=== PATIENT | male | born 1970 | race Caucasian/White ===

== ENCOUNTER → 2019-06-18 09:30 | Outpatient (CLI) | payer OTHER, SELFPAY ==
[2019-06-18 11:06] LABS: Alanine Aminotransferase 23 IU/L (<50); Albumin 4.6 g/dL (3.5-5.0); Albumin Globulin Ratio 1.5 (1.0-2.8); Alkaline Phosphatase 60 U/L (38-126); Aspartate Aminotransferase 23 IU/L (17-59); BUN Creatinine Ratio 22.2 (6-22); Bilirubin Total 0.4 mg/dL (0.2-1.3); Blood Urea Nitrogen 20 mg/dL (9-20); Calcium 9.8 mg/dL (8.4-10.2); Carbon Dioxide 24 mmol/L (22-32); Chloride 102 mmol/L (98-107); Estimated Glomerular Filt Rate > 60.0 mL/min (>60); Globulin 3.1 g/dL (1.7-4.1); Glucose 105 mg/dL (70-100); HEMOLYSIS < 15 (0-50); Potassium 4.5 mmol/L (3.4-5.1); Sodium 136 mmol/L (137-145); Total Protein 7.7 g/dL (6.3-8.2)
[2019-06-18 11:07] LABS: Digoxin < 0.4 ng/mL (0.8-2.0)
== END ==
LOC: LAB 09:31
PROVIDERS: PCP Nurse Practitioner Family; Visit Provider Internal Medicine Cardiovascular Disease
DX: I50.22 Chronic systolic (congestive) heart failure (principal)
CPT/HCPCS: 36415; 80053; 80162

== ENCOUNTER → 2019-07-09 07:49 | Outpatient (CLI) | payer OTHER, SELFPAY ==
--- NOTE | 2019-07-09 | DI.ECHO.S_ITS ---
[facility]---------+ [facility] +---------+ : : [address] : [place] [address] : : : : [id number] : : : : Phone: [phone] Echocardiogram Report + + :Name: DREW STERN Study Date: 07/09/2019 Height: 69 in : :[facility] Weight: 250 lb : : Gender: Male BSA: 2.3 m2 : :: 1970 Age: 48 yrs BP: 134/62 mmHg: :Reason For Study: SYSTOLIC HEART FAILURE : :Ordering Physician: Barbara : :Dyana Nolen Performed By: Farnaz Álvarez : :Referring: BARBARA NOLEN : + + Interpretation Summary The left ventricle is normal in size. This is decreased compared to the previous study. Left ventricular ejection fraction is estimated to be 55 +/- 5%. Left ventricular systolic function has significantly improved compared to the previous exam. The right ventricle is normal in size and function. Right ventricular systolic function has increased since previous exam. No significant valvular pathology seen. The IVC is of normal diameter and collapses greater than 50% with a sniff. This suggests a low right atrial pressure of 3 mm Hg. Right atrial pressure has decreased from the previous study. The patient was in atrial flutter with heart rates between 89-104 bpm during the exam. Procedure: A two-dimensional transthoracic echocardiogram with color flow and Doppler was performed. The study quality was technically adequate. Comparison is made with the echocardiogram of 06/14/2017. The patient was in atrial flutter with heart rates between 89-104 bpm during the exam. Left Ventricle: Left ventricular wall thickness is mildly increased. The left ventricle is normal in size. This is decreased compared to the previous study. There is no thrombus. Left ventricular ejection fraction is estimated to be 55 +/- 5%. Left ventricular systolic function has significantly improved compared to the previous exam. There are no focal wall motion abnormalities. E/E' med: 8.9. Right Ventricle: The right ventricle is normal in size and function. Right ventricular systolic function has increased since previous exam. Atria: Both atria are normal in size. Both atria have significantly decreased in size since the prior echo exam. There is no Doppler evidence for an interatrial shunt. Mitral Valve: The mitral valve leaflets are slightly calcified. There is trace mitral regurgitation. Compared to the prior echo study, there has been a decrease in the severity of mitral regurgitation. Aortic Valve: The aortic valve is trileaflet. The aortic valve opens well. No aortic regurgitation is present. Tricuspid Valve: The tricuspid valve is normal in structure and function. Pulmonary artery pressures cannot be estimated because of the lack of a measurable TR jet velocity. There is a trace or physiologic amount of tricuspid regurgitation. Compared to the prior echo exam, there has been a decrease in TR severity. Pulmonic Valve: The pulmonic valve is not well visualized. Great Vessels: The aortic root is normal size. The ascending aorta is at the upper limits of normal in size. The IVC is of normal diameter and collapses greater than 50% with a sniff. This suggests a low right atrial pressure of 3 mm Hg. Pericardium/ Pleura There is no pericardial effusion. MMode/2D Measurements & Calculations LVIDd: 5.2 cm LVOT diam: 2.5 cm LVIDs: 4.2 cm Ao root diam: 3.6 cm FS: 18.6 % asc Aorta Diam: 3.4 cm EPSS: 0.90 cm Ao Arch Diam (Prox Trans): 3.0 cm IVSd: 1.2 cm LVPWd: 1.1 cm LV wylie. diameter/BSA (cm/m^2): 2.3 LV sys. diameter/BSA (cm/m^2): 1.9 LA A2 area: 19.3 cm2 RA long axis: 5.1 cm LA A4 area: 18.2 cm2 RA area: 19.3 cm2 LA length (vol): 5.2 cm RA vol: 61.5 ml LA vol: 57.1 ml RA : 27.1 ml/m2 LA vol index: 25.1 ml/m2 IVC diam: 0.87 cm RVD1 (basal): 3.0 cm RVD2 (mid): 3.0 cm TAPSE: 2.9 cm Doppler Measurements & Calculations Ao V2 max: 116.1 cm/sec LVOT Max Gareth: 84.6 cm/sec Ao V2 mean: 70.3 cm/sec LV V1 max P.9 mmHg Ao max P.4 mmHg LV V1 VTI: 15.2 cm Ao mean P.5 mmHg EDUARDO(I,D): 3.7 cm2 Ao V2 VTI: 20.4 cm EDUARDO(V,D): 3.6 cm2 sev ratio: 0.75 EDUARDO indexed to BSA (cm^2/m^2): 1.6 MV E max gareth: 100.9 cm/sec PA V2 max: 80.7 cm/sec MV A max gareth: 0.64 cm/sec PA V2 mean: 59.9 cm/sec MV E/A: 157.4 PA mean P.6 mmHg Med Peak E' Gareth: 11.4 cm/sec PA pr(Accel): 40.1 mmHg E/E' med: 8.9 PA Accel Time: 0.10 sec Lat Peak E' Gareth: 19.4 cm/sec E/E' lat: 5.2 E/e' average: 7.0 MV dec time: 0.14 sec SV(LVOT): 76.0 ml Reading Physician:05:05 PM
== END ==
LOC: ECHO 07:51
PROVIDERS: PCP Nurse Practitioner Family; Referring Provider Internal Medicine Cardiovascular Disease; Visit Provider Internal Medicine Cardiovascular Disease
DX: I48.92 Unspecified atrial flutter (principal); I50.22 Chronic systolic (congestive) heart failure
CPT/HCPCS: 93306

== ENCOUNTER → 2020-07-23 09:14 | Outpatient (CLI) | payer OTHER, SELFPAY ==
[2020-07-23 10:02] LABS: Blood Urea Nitrogen 21 mg/dL (9-20); Calcium 9.6 mg/dL (8.4-10.2); Carbon Dioxide 29 mmol/L (22-32); Chloride 101 mmol/L (98-107); Estimated Glomerular Filt Rate > 60.0 mL/min (>60); Glucose 99 mg/dL (70-100); HEMOLYSIS 16 (0-50); Potassium 4.1 mmol/L (3.4-5.1); Sodium 136 mmol/L (137-145)
== END ==
PROVIDERS: Referring Provider Internal Medicine Cardiovascular Disease; Visit Provider Internal Medicine Cardiovascular Disease
DX: I42.0 Dilated cardiomyopathy (principal)
CPT/HCPCS: 36415; 80048

== ENCOUNTER → 2020-10-30 09:20 | Outpatient (CLI) | payer OTHER, SELFPAY ==
[2020-10-30 11:18] LABS: COVID19 -Nasal RAPID Negative (Negative)
== END ==
PROVIDERS: Visit Provider Physician Assistant
DX: Z01.812 Encounter for preprocedural laboratory examination (principal); Z20.822 Contact with and (suspected) exposure to COVID-19
CPT/HCPCS: 87635

== ENCOUNTER → 2024-03-20 10:42 | Outpatient (CLI) | payer OTHER, SELFPAY ==
[2024-03-20 12:24] LABS: Hematocrit 48.8 % (41-53); Hemoglobin 16.6 g/dL (13.5-17.5); Mean Corpuscular HGB Conc 34.1 % (30-36); Mean Corpuscular Hemoglobin 29.4 PG (26-34); Mean Corpuscular Volume 86.1 fL (80-100); Platelet Count 286 X10^3/uL (150-400); Red Blood Cell Count 5.67 X10^6/uL (4.5-5.9); Red Cell Distribution Width 13.6 % (11.6-14.8); White Blood Cell Count 8.1 X10^3/uL (4.5-11.0)
[2024-03-20 13:13] LABS: Alanine Aminotransferase 31 IU/L (<50); Albumin 4.7 g/dL (3.5-5.0); Albumin Globulin Ratio 1.6 (1.0-2.8); Alkaline Phosphatase 66 U/L (38-126); Aspartate Aminotransferase 25 IU/L (17-59); BUN Creatinine Ratio 19.8 (6-22); Bilirubin Total 0.8 mg/dL (0.2-1.3); Blood Urea Nitrogen 16 mg/dL (9-20); Calcium 9.4 mg/dL (8.4-10.2); Carbon Dioxide 25 mmol/L (22-32); Chloride 101 mmol/L (98-107); Cholesterol 194 mg/dL (140-199); Estimated Glomerular Filt Rate > 60 mL/min (>60); Globulin 2.9 g/dL (1.7-4.1); Glucose 101 mg/dL (70-100); HDL Cholesterol 45 mg/dL (40-60); HEMOLYSIS < 15 (0-50); LDL Cholesterol Calculated 128 mg/dL (<100); Potassium 4.5 mmol/L (3.4-5.1); Sodium 136 mmol/L (137-145); Total Protein 7.6 g/dL (6.3-8.2); Triglycerides 106 mg/dL (35-150)
[2024-03-20 13:39] LABS: Thyroid Stimulating Hormone 1.43 uIU/mL (0.47-4.68)
== END ==
PROVIDERS: Referring Provider Nurse Practitioner Acute Care; Visit Provider Nurse Practitioner Acute Care
DX: I49.3 Ventricular premature depolarization (principal); E78.5 Hyperlipidemia, unspecified; Z79.01 Long term (current) use of anticoagulants
CPT/HCPCS: 36415; 80053; 80061; 83735; 84439; 84443; 85027

== ENCOUNTER → 2024-06-12 14:56 | Outpatient (CLI) | payer OTHER, SELFPAY ==
--- NOTE | 2024-06-12 14:56 | DI.ECHO.S_ITS ---
[facility] +---------+ [facility] : : [address] : : [place] : : [id number] : : Phone: [phone] Echocardiogram Report + + :Name: DREW STERN Study Date: 06/12/2024 Height: 69 in : :Hospital ReadingLocation: Weight: 245 lb : : Gender: Male BSA: 2.3 m2 : :: 1970 Age: 53 yrs BP: 168/102 mmHg: :Reason For Study: CARDIOMYOPATHY : :Ordering Physician: BINH, : :ALLYSSA Performed By: Gage Jean-Baptiste : :Referring: ALLYSSA PURCELL : + + Interpretation Summary The left ventricle is normal in size. The left ventricular ejection fraction is normal. The ejection fraction is estimated to be 55-60%. No significant change in LV function. Rhythm is sinus. Previously atrial flutter. The right ventricle is normal in size and function. No significant valvular pathology seen. The IVC is of normal diameter and collapses greater than 50% with a sniff. This suggests a low right atrial pressure of 3 mm Hg. Procedure: A two-dimensional transthoracic echocardiogram with color flow and Doppler was performed. The study quality was technically adequate. Comparison is made with the echocardiogram of 07/09/2019. The patient was in normal sinus rhythm during the exam. Left Ventricle: The left ventricle is normal in size. There is normal left ventricular wall thickness. There is no thrombus. The left ventricular ejection fraction is normal. The ejection fraction is estimated to be 55-60%. There are no focal wall motion abnormalities. MV E/A: 0.90 Med Peak E' Gareth: 5.2 cm/sec E/E' med: 16.0. Right Ventricle: The right ventricle is normal in size and function. Atria: The left atrial size is normal. There has been no significant change since the previous study. Right atrial size is normal. There is no Doppler evidence for an interatrial shunt. Mitral Valve: The mitral valve leaflets are slightly calcified. There is no mitral regurgitation noted. Aortic Valve: The aortic valve is trileaflet. The aortic valve opens well. There is no aortic valve stenosis. No aortic regurgitation is present. Tricuspid Valve: The tricuspid valve is normal. No tricuspid regurgitation. Pulmonary artery pressures cannot be estimated because of the lack of a measurable TR jet velocity. Pulmonic Valve: The pulmonic valve is not well seen, but is grossly normal. There is no pulmonic valvular regurgitation. Great Vessels: The aortic root is normal size. The dimensions of the ascending aorta are normal. The pulmonary artery is normal size. The IVC is of normal diameter and collapses greater than 50% with a sniff. This suggests a low right atrial pressure of 3 mm Hg. Pericardium/ Pleura There is no pericardial effusion. There is no pleural effusion. MMode/2D Measurements & Calculations LVIDd: 5.3 cm LVOT diam: 2.3 cm LVIDs: 4.0 cm Ao root diam: 3.8 cm FS: 24.3 % asc Aorta Diam: 3.6 cm EPSS: 0.99 cm IVSd: 1.2 cm LVPWd: 1.2 cm LV wylie. diameter/BSA (cm/m^2): 2.3 LV sys. diameter/BSA (cm/m^2): 1.8 LA A2 area: 14.3 cm2 RA long axis: 3.8 cm LA A4 area: 17.5 cm2 RA area: 10.4 cm2 LA length (vol): 5.2 cm RA vol: 24.4 ml LA vol: 41.1 ml RA : 10.8 ml/m2 LA vol index: 18.2 ml/m2 IVC diam: 1.7 cm RVD1 (basal): 3.8 cm RVD2 (mid): 2.9 cm TAPSE: 3.4 cm Doppler Measurements & Calculations Ao V2 max: 133.0 cm/sec LVOT Max Gareth: 83.0 cm/sec Ao V2 mean: 96.7 cm/sec LV V1 max P.8 mmHg Ao max P.1 mmHg LV V1 VTI: 16.3 cm Ao mean P.0 mmHg EDUARDO(I,D): 2.6 cm2 Ao V2 VTI: 25.8 cm EDUARDO(V,D): 2.6 cm2 sev ratio: 0.63 EDUARDO indexed to BSA (cm^2/m^2): 1.2 MV E max gareth: 83.2 cm/sec PA V2 max: 64.1 cm/sec MV A max gareth: 92.2 cm/sec PA V2 mean: 46.9 cm/sec MV E/A: 0.90 PA mean P.94 mmHg Med Peak E' Gareth: 5.2 cm/sec PA pr(Accel): 34.5 mmHg E/E' med: 16.0 Lat Peak E' Gareth: 8.2 cm/sec E/E' lat: 10.2 E/e' average: 13.1 MV dec time: 0.15 sec SV(LVOT): 67.5 ml Reading Physician:10:57 AM
== END ==
LOC: ECHO 14:56
PROVIDERS: Referring Provider Nurse Practitioner Acute Care; Visit Provider Nurse Practitioner Acute Care
DX: Z86.79 Personal history of other diseases of the circulatory system (principal); Z09 Encounter for follow-up examination after completed treatment for conditions other than malignant neoplasm
CPT/HCPCS: 93306